=== PATIENT | male | born 1970 | race Caucasian/White ===

== ENCOUNTER → 2016-11-17 | Outpatient (CLI) | payer BC ==
[2016-11-17 12:51] LABS: BASO % 0.5 %; BASO ABS # 0.03 K/uL (0-0.2); COMPLETE YES; EOS % 4.3 %; HEMATOCRIT 42.6 % (42-52); IG% 0.2 %; LYMPH % 23.4 %; LYMPH ABS # 1.42 K/uL (1.2-3.4); MEAN CELL VOLUME 89.5 fL (80-100); MEAN CORPUSCULAR HEMOGLOBIN 31.3 pg (25-34); MEAN PLATELET VOLUME 10.9 fL (7.4-10.4); MONO % 6.4 %; NEUT % 65.2 %; PLATELET COUNT 287 K/uL (130-400); RED BLOOD COUNT 4.76 M/uL (4.7-6.1); WHITE BLOOD COUNT 6.08 K/uL (4.8-10.8)
[2016-11-17 13:03] LABS: ALT/SGPT 58 U/L (12-78); AST/SGOT 28 U/L (15-37); BLOOD UREA NITROGEN 15 mg/dl (7-18); BUN/CREATININE RATIO 15.9 (10-20); CALCIUM 9.4 mg/dl (8.5-10.1); CARBON DIOXIDE 30 mmol/L (21-32); CHLORIDE 103 mmol/L (98-107); CREATININE 0.96 mg/dl (0.60-1.40); GLUCOSE 97 mg/dl (70-99); POTASSIUM 4.5 mmol/L (3.5-5.1); SODIUM 140 mmol/L (136-145)
[2016-11-17 13:12] LABS: ALB/GLOB RATIO 1.3 (0.9-2); ALKALINE PHOSPHATASE 94 U/L (45-117); CHOLESTEROL 184 mg/dl (0-200); CHOLESTEROL/HDL RATIO 3.8; HDL CHOLESTEROL 49 mg/dl; LDL CHOLESTEROL CALCULATED 111 mg/dl; TRIGLYCERIDES 120 mg/dl (0-150); VERY LOW DENSITY LIPOPROT CALC 24 mg/dl
== END | disposition home or self-care (01) ==
LOC: C.LABBFT 07:49
PROVIDERS: ATTEND Internal Medicine
DX: Z00.00 Encounter for general adult medical examination without abnormal findings (principal); R53.83 Other fatigue

== ENCOUNTER → 2017-06-08 | Outpatient (CLI) | payer BC | END | disposition home or self-care (01) | LOC: C.LABBFT 09:15 | PROVIDERS: ATTEND Physician Assistant Medical | DX: E55.9 Vitamin D deficiency, unspecified (principal) ==

== ENCOUNTER 2017-08-16 11:56 | Emergency (ER) | payer BC ==
[~2017-08-16] VITALS: Ht 182.9 cm; Wt 93.0 kg
[2017-08-16 12:09] VITALS: TEMP 37; Ht 182.9 cm; Wt 93.0 kg
[2017-08-16] MEDS ORDERED: DIPHTHERIA/TETANUS/PERTUSSIS 0.5 ML SYR/VIAL IM. ONE (13:00)
[2017-08-16] MEDS ORDERED: XYLOCAINE 1%/SOD BICARB 20 ML VIAL INFIL ONE (13:00)
--- NOTE | 2017-08-16 13:28 | EMERGENCY ROOM VISIT NOTE ---
ED Visit Note First contact with patient: 12:23 CHIEF COMPLAINT: Right thumb laceration one hour ago HISTORY OF PRESENT ILLNESS: Patient is a khwpy-[id number]-saymosyn 47-year-old white male who presents emergency department for evaluation of a laceration to his right thumb that he sustained about one hour ago. He was trying to close a blade on a multi-tool device, when it got hung up, then closed abruptly, causing the laceration to the tip of the right thumb. Bleeding has been controlled with pressure. There weakness or numbness the thumb. He notes that the tool had been lubricated with WD-40, and that there may have been some on the blade when he cut himself. REVIEW OF SYSTEMS: Review of systems as per HPI. All other systems reviewed were negative. At least 6 systems reviewed. PMH: Electronic medical records are reviewed and summarized as above/below. See Problem List. Unsure of his last tetanus. SOCIAL HISTORY: Patient lives at home. Non-smoker, no regular alcohol. PHYSICAL EXAM: Vital Signs: Reviewed Nurse's notes. There is a 2.5 cm long laceration on the tip of the right thumb thumb. The edges are gaping apart. There is no foreign material in the wound and it looks clean. There is no active bleeding. No deep structures such as tendons or nerves are seen in the base of the wound. Extension, flexion and abduction and adduction of the thumb is full and strong. Sensation to pain and light touch is intact. EMERGENCY DEPARTMENT COURSE: Using sterile technique, saline and Betadine cleansing, and 1% lidocaine anesthesia, the laceration was irrigated with saline and then repaired with 8, 5-0 nylon sutures. The patient's tetanus was updated. Bacitracin and a light dressing were applied. Patient tolerated the procedure well. There is no nailbed involvement. I do not suspect soft fracture. There is no evidence for tendinous injury. Medication reconciliation: I attest that I have personally reviewed the patient' s current medication list. Blood pressure screening : Patient was found to have normal blood pressure on screening and does not require follow-up. Current/Historical Medications No Active Prescriptions or Reported Meds Allergies Coded Allergies: No Known Allergies (Unverified , 08/16/17) Vital Signs Date Time Temp Pulse Resp B/P (MAP) Pulse Ox O2 Delivery O2 Flow Rate FiO2 08/16/17 13:35 75 16 124/74 98 08/16/17 13:32 64 18 128/93 97 Room Air 08/16/17 12:09 37.0 96 16 133/93 98 Room Air Medications Administered Medications (Trade) Dose Ordered Sig/Thalia Route Start Time Stop Time Status Last Admin Dose Admin Diphtheria/ Pertussis/Tetanus Vacc (Adacel Inj) 0.5 ml ONCE ONCE IM. 08/16/17 13:00 08/16/17 13:02 DC 08/16/17 12:59 0.5 ML Departure Information Impression Primary Impression: Laceration of right thumb Prescriptions No Active Prescriptions or Reported Meds Referrals Donny Dove M.D. (PCP) Patient Instructions My [facility] Additional Instructions Keep wound clean and dry. Do not allow any crusting or dried blood to accumulate on sutures. If this occurs, use a 1:1 solution of hydrogen peroxide/ water on a Q-tip to clean the wound. Use an antibiotic ointment for 3-4 days, then let wound dry. Suture removal in 10-12 days. Return sooner for any signs of infection (increasing redness, swelling, drainage). Ice and elevate for swelling and pain. Ibuprofen 600 mg and Tylenol 1000 mg every 6 hrs for pain. Problem Qualifiers Primary Impression: Laceration of right thumb Encounter type: initial encounter Damage to nail status: without damage Foreign body presence: without foreign body Qualified Codes: S61.011A - Laceration without foreign body of right thumb without damage to nail, initial encounter
[2017-08-16 13:35] VITALS: BP 124/74; PULSE 75; O2SAT 98
== END 2017-08-16 13:35 | disposition home or self-care (01) ==
LOC: C.EDB 11:57 → C.EDD 13:35
DX: S61.011A Laceration without foreign body of right thumb without damage to nail, initial encounter (principal); W26.8XXA Contact with other sharp object(s), not elsewhere classified, initial encounter; Z23 Encounter for immunization